=== PATIENT | female | born 1970 | race Asian ===

== ENCOUNTER 2018-12-26 09:08 | Emergency (ER) | payer OTHER ==
--- OUTSIDE RECORDS SUMMARY | 2018-12-26 09:16 | XMS REPORT | Continuity of Care Document ---
:1970 External Reference #:[id number] Author Name CHALINO Jeong Address [address] [place] [address] Care Team Providers Name Role Phone Johann Dumont MD Care Team Information Retail Sales Advisor Unavailable Johann Dumont MD Primary Care Physician Unavailable Payers Date Identification Numbers Payment Provider Subscriber Effective: 2013 Policy Number: [id number] [facility] Group Number: [id number] [address] PayID: [id number] [place] [address] Problems Active Problems Provider Date Other iron deficiency anemias Johann Dumont M.D. Onset: 10/28/2015 Dysmenorrhea Johann Dumont M.D. 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 Onset: 09/23/2015 Resolved: 05/08/2018 Alopecia areata Johann Dumont M.D. Onset: 09/23/2015 Resolved: 05/08/2018 Epidermoid cyst Johann Dumont M.D. Onset: 09/23/2015 Resolved: 05/08/2018 Chest pain Johann Dumont M.D. Onset: 09/23/2015 Resolved: 05/08/2018 Family History Date Family Member(s) Observation Comments Father Arthritis Father Malignant Neoplasm Of Bone Mother Diabetes Mellitus, II Children 1 First Son Peanut allergies Siblings 4 Siblings 2 brothers and 2 sisters are all well Social History Type Date Description Comments Sex Unknown Marital Status Legal Status: Lives With Spouse Lives With Son Diet Healthy, Well Balanced Occupation jail / [place] Abuse No history of abuse Tobacco Use Start: Unknown Nonsmoker ETOH Use Denies alcohol use Tobacco Use Start: Unknown Patient has never smoked Exercise Type/Frequency Exercises regularly dance class, eliane richardsonop, 30 min Seat Belt/Car Seat Always uses seat belt Currently Active Patient is currently sexually active Allergies, Adverse Reactions, Alerts Description No Known Drug Allergies Medications Active Medications SIG Qnty Indications Ordering Date Provider Tizanidine HCL 1-2 by mouth at 30caps M62.830 Hilton 12/23/2018 4mg bedtime prn pain Yolette, CLUBHOUSE ATTENDANT Capsules in shoulder / back Triamcinolone apply sparingly to 15gm Hilton 12/23/2018 Acetonide bilateral Yolette, CLUBHOUSE ATTENDANT 0.025% Cream antecubital space for itching Tylenol as needed Unknown 325mg Capsules History Medications Finger Splint Small r hand use as M79.644 Elli Sofia, 03/01/2018 - directed Camila 05/08/2018 Misc Iron 1 po qd-bid 120tabs Johann FMarguerite 01/26/2016 - 325(65Fe) mg Camila Dumont 05/08/2018 Tablets Fioricet 1 po q 4 hrs prn 30caps R51 Georgette Garcia, 08/19/2015 - 50-300-40mg for headache; Afnp-C 03/09/2017 Capsules may fill w/ generic No Active Unknown 11/17/2014 - Medications 08/19/2015 Penicillin V 1 by mouth twice 20tabs 034.0 Georgette Garcia, 11/07/2014 - Potassium a day x 10 days Afnp-C 11/17/2014 500mg Tablets Azithromycin 2 tabs by mouth 6tabs 466.0 Teddy Brooks M.D. 05/10/2014 - 250mg day #1 then 1 11/07/2014 Tablets tab by mouth day#2-5 No Active Unknown 07/25/2013 - Medications 05/10/2014 Immunizations CPT Code Status Date Vaccine Lot # [id number] Given 05/08/2018 Tdap Tetanus, W Pertussis [id number] Given 03/09/2017 Influenza Vac, Quadrivalent, Slit Virus, Im [id number] Vital Signs Date Vital Result Comment 12/23/2018 10:32am BP Systolic 98 mmHg BP Diastolic 70 mmHg Heart Rate 75 /min Body Temperature 97.8 F Respiratory Rate 16 /min Height 61.5 inches 5'1.50" Weight 114.00 lb BMI (Body Mass Index) 21.2 kg/m2 05/08/2018 10:24am BP Systolic 98 mmHg BP Diastolic 68 mmHg Heart Rate 60 /min Body Temperature 97.6 F Respiratory Rate 16 /min Height 61.5 inches 5'1.50" Weight 110.12 lb BMI (Body Mass Index) 20.5 kg/m2 03/01/2018 8:07am BP Systolic 100 mmHg BP Diastolic 68 mmHg Heart Rate 68 /min Body Temperature 97.3 F Respiratory Rate 18 /min Height 62 inches 5'2" Weight 108.00 lb BMI (Body Mass Index) 19.8 kg/m2 04/06/2017 1:00pm BP Systolic 88 mmHg BP Diastolic 60 mmHg Heart Rate 64 /min Body Temperature 98.1 F Respiratory Rate 16 /min Height 60.75 inches 5'0.75" Weight 114.00 lb BMI (Body Mass Index) 21.7 kg/m2 03/09/2017 1:04pm BP Systolic 80 mmHg BP Diastolic 40 mmHg Heart Rate 78 /min Body Temperature 97.7 F Respiratory Rate 16 /min Height 60.75 inches 5'0.75" Weight 118.00 lb BMI (Body Mass Index) 22.5 kg/m2 10/01/2015 2:35pm BP Systolic 94 mmHg BP Diastolic 58 mmHg Heart Rate 76 /min Body Temperature 98.1 F Respiratory Rate 16 /min Height 60.75 inches 5'0.75" Weight 119.00 lb BMI (Body Mass Index) 22.7 kg/m2 09/23/2015 3:51pm BP Systolic 118 mmHg BP Diastolic 72 mmHg Heart Rate 68 /min Body Temperature 97.7 F Height 60.75 inches 5'0.75" Weight 116.00 lb BMI (Body Mass Index) 22.1 kg/m2 08/19/2015 3:02pm BP Systolic 100 mmHg BP Diastolic 54 mmHg Heart Rate 64 /min Body Temperature 98.4 F Respiratory Rate 12 /min Height 60.75 inches 5'0.75" Weight 120.38 lb BMI (Body Mass Index) 22.9 kg/m2 11/07/2014 3:28pm BP Systolic 100 mmHg BP Diastolic 60 mmHg Heart Rate 68 /min Body Temperature 99.1 F Respiratory Rate 16 /min Height 60.75 inches 5'0.75" Weight 119.50 lb BMI (Body Mass Index) 22.8 kg/m2 05/10/2014 2:36pm BP Systolic 90 mmHg BP Diastolic 62 mmHg Heart Rate 68 /min Body Temperature 97.4 F Respiratory Rate 16 /min O2 % BldC Oximetry 98 % Height 60.75 inches 5'0.75" Weight 121.00 lb BMI (Body Mass Index) 23.0 kg/m2 08/01/2013 2:20pm BP Systolic 90 mmHg BP Diastolic 60 mmHg Heart Rate 68 /min Body Temperature 98.7 F Respiratory Rate 14 /min Height 60.75 inches 5'0.75" Weight 114.00 lb BMI (Body Mass Index) 21.7 kg/m2 07/25/2013 3:50pm BP Systolic 107 mmHg BP Diastolic 70 mmHg Heart Rate 62 /min Body Temperature 99.0 F Respiratory Rate 16 /min Height 60.75 inches 5'0.75" Weight 114.00 lb BMI (Body Mass Index) 21.7 kg/m2 Results Test Date Facility Test Result H/L Range Note Iron And Tibc 11/06/2018 [facility] Iron 409 g/dL 250-450 1 [address] [facility] [place] [address] ) (607)- - Uibc 180 g/dL 131-425 Iron 229 g/dL High 27-159 Iron Saturation 56 % High 15-55 Hemoglobinopathy Fraction 11/06/2018 [facility] Hgb F 0.0 % 0.0-2.0 Prof W/O Solu [address] [place] [address] (607)- - Hgb A 79.9 % Low 96.4-98.8 Hgb S 0.0 % 0.0 Hgb C 0.0 % 0.0 Hgb A2 See Comment: % 1.8-3.2 2 Hgb Variant 20.1 % High 0.0 Interpretation See Comment: 3 CBC Electronic Fma 11/06/2018 [facility](fma) WBC 5.2 x10^3/UL 4.0- 10.0 RBC 4.06 x10^6/UL 3.93-6.00 HGB 11.4 g/dL Low 12.0-17.0 HCT 34 % Low 35-50 MCV 84.5 fL 80.0-95.0 MCH 28.1 pg 25.6-32.2 MCHC 33.2 g/dL 32.2-36.0 RDW-CV 13.0 % 11.6-14.4 PLT 220 x10^3/UL 163-400 MPV 10.7 fL 9.4-12.4 Elena# 3.26 x10^3/UL 1.56-6.13 Lymph# 1.09 x10^3/UL Low 1.18-3.74 Roosevelt# 0.37 x10^3/UL 0.24-0.82 Eos # 0.4 x10^3/UL 0.0-0.5 Baso # 0.07 x10^3/UL 0.01-0.08 Elena% 63.1 % 34.0-70.0 Lymph % 21.1 % 20.0-52.0 Roosevelt% 7.2 % 5.0-12.0 Eos% 7.0 % 0.7-7.0 Baso% 1.4 % High 0.1-1.2 Laboratory test 11/06/2018 [facility] Sima(a) Ferritin 11 ng/mL Low 15- 200 4 finding Laboratory test 05/08/2018 [facility] Cytology SEE RESULT 5 finding Thinprep BELOW w/rfx([facility]) Comprehensive 04/25/2018 [facility] Sima(fma) Sodium 140 mEq/L 134-149 Metabolic Prof Potassium 4.6 mEq/L 3.6-5.5 Chloride 108 mEq/L 94-112 Carbon Dioxide 24 mEq/L 21-32 Glucose 101 mg/dL 70-105 BUN 10 mg/dL 6-26 Creatinine 0.5 mg/dL Low 0.6-1.4 6 BUN/Creat Ratio 20.0 CALC 8.0-36.0 Calcium 8.2 mg/dL Low 8.6-10.2 7 Total Protein 7.2 g/dL 6.4-8.3 Albumin 4.4 g/dL 3.8-5.5 Globulin 2.8 g/dL 2.0-4.8 A/G Ratio 1.6 CALC 0.6-2.3 Alk. Phosphatase 43 U/L 30-110 Alt (SGPT) 11 U/L 7-35 Ast (Sgot) 11 U/L 5-34 Total Bilirubin 0.4 mg/dL 0.2-1.3 GFR Non- >60 ml/min/1.73m^ >=60 GFR >60 ml/min/1.73m^ >=60 Lipid Profile 04/25/2018 [facility](fma) Cholesterol 214 mg/dL High 120-200 Triglycerides 40 mg/dL 30-200 HDL Cholesterol 86 mg/dL High 30-85 LDL (Calculated) 120 CALC 0-129 VLDL Cholesterol 8 mg/dL 0-50 HDL Risk Factor 2.5 CALC 0.0-4.4 CBC Electronic Fma 04/25/2018 [facility] Flora(fma) WBC 7.0 x10^3/UL 4.0- 10.0 RBC 3.85 x10^6/UL Low 3.93-6.00 HGB 10.7 g/dL Low 12.0-17.0 HCT 33 % Low 35-50 MCV 85.2 fL 80.0-95.0 MCH 27.8 pg 25.6-32.2 MCHC 32.6 g/dL 32.2-36.0 RDW-CV 13.9 % 11.6-14.4 PLT 248 x10^3/UL 163-400 MPV 10.6 fL 9.4-12.4 Elena# 4.84 x10^3/UL 1.56-6.13 Lymph# 1.10 x10^3/UL Low 1.18-3.74 Roosevelt# 0.39 x10^3/UL 0.24-0.82 Eos # 0.6 x10^3/UL High 0.0-0.5 Baso # 0.07 x10^3/UL 0.01-0.08 Elena% 69.6 % 34.0-70.0 Lymph % 15.8 % Low 20.0-52.0 Roosevelt% 5.6 % 5.0-12.0 Eos% 8.0 % High 0.7-7.0 Baso% 1.0 % 0.1-1.2 Age 1104/06/2017 [facility] Age 30-65 [facility] [place] [address] (809)- - Diagn See Comment: Abnormal 8 Recomm See Comment: Abnormal 9 Adeq See Comment: 10 [email or web address] See Comment: 11 Perfor See Comment: 12 Signed See Comment: 13 Comm . [email or web address] See Comment: 14 Note See Comment: 15 Iglbp See Comment: 16 HPV Aptima Negative Negative 17 Laboratory test 04/06/2017 [facility] PDF [id number] SEE IMAGE finding [address] [place] [address] (607)- - Ict Hemoccult 03/28/2017 [facility] Ict Hemoccult (1) 03/10/17 neg (Fma) (607)- - Ict Hemoccult-(2) 03/11/17 neg Ict-Hemoccult (3) 03/12/17 neg Iron & Iron Binding Capacity 03/09/2017 [facility] Iron 95 g/dL N 50-212 Unsaturated Iron Binding 363 g/dL N Total Iron Binding Capacity 458 g/dL High 250-450 % Iron Saturation 21 % N 15-55 Complete Blood Count 03/09/2017 [facility] Sima(a) WBC 7.5 x10^3/UL 3.6 -9.6 RBC 4.21 x10^6/UL 3.90-5.70 HGB 11.7 g/dL Low 12.1-17.2 HCT 36 % 36-50 MCV 85.0 fL 82.2-97.4 MCH 27.7 pg 27.6-33.3 MCHC 33.0 g/dL 33.0-35.5 RDW 13.0 % 11.6-13.7 PLT 262 x10^3/UL 150-400 MPV 8.0 fL 7.4-10.4 Gran # 5.4 x10^3/UL 1.5-7.2 Lymph# 1.7 x10^3/UL 0.7-4.9 Roosevelt# 0.4 x10^3/UL 0.1-0.9 Gran % 71.0 % 42.2-75.2 Lymph % 23.4 % 20.5-51.1 Roosevelt% 5.6 % 1.7-9.3 CBC Electronic (Fma) 12/26/2015 [facility] WBC 6.1 3.6-9.6 (607)- - RBC 3.69 Low 3.90-5.70 18 Hemoglobin (Fma/CMC/CTX) 10.4 g/dL Low 12.1 - 17.2 Hematocrit (Fma/CMC/CTX) 31.9 % Low 36.1 - 50.3 Platelets 253 10^3/ul 150-400 Lymph% 35.7 % 17.0-48.0 Mixed% 6.7 Neutrophils % 57.6 Mean Corpuscular Vol 86 82.2-97.4 Mean Corpuscular Hemoglobin 28.1 27.6-33.3 Mean Corpuscular Hemo Concen 32.5 32.0-36.0 RDW 13.0 11.6-13.7 Mean Platelet Volume 6.9 5.5-11.0 Laboratory test 12/26/2015 [facility] Sima(fma) Serum Iron 47 g/dL Low 60-150 finding Ict Hemoccult 11/18/2015 [facility] Ict Hemoccult 11/03/15 NEG (Fma) (607)- - (1) Ict Hemoccult-(2) 11/04/15 NEG Ict-Hemoccult (3) 11/06/15 NEG Pap HPV High Risk 10/01/2015 [facility] Diagn See Comment: 19 [address] [place] [address] (366)- - Recomm See Comment: 20 Adeq See Comment: 21 [email or web address] See Comment: 22 Perfor See Comment: 23 Signed See Comment: 24 Comm . Note See Comment: 25 Iglbp See Comment: 26 HPV, high-risk Negative Negative 27 Laboratory test 10/01/2015 [facility] PDF [id number] SEE IMAGE finding [address] [place] [address] (072)- - CBC Electronic 09/23/2015 [facility] WBC 6.1 3.6-9. (Fma) (607)- - 6 RBC 3.89 Low 3.90-5.70 Hemoglobin (Fma/CMC/CTX) 10.3 g/dL Low 12.1 - 17.2 28 Hematocrit (Fma/CMC/CTX) 32.0 % Low 36.1 - 50.3 Platelets 253 10^3/ul 150-400 Lymph% 28.1 % 17.0-48.0 Mixed% 5.0 Neutrophils % 66.9 Mean Corpuscular Vol 82 Low 82.2-97.4 Mean Corpuscular Hemoglobin 26.5 Low 27.6-33.3 Mean Corpuscular Hemo Concen 32.3 32.0-36.0 RDW 13.6 11.6-13.7 Mean Platelet Volume 7.7 5.5-11.0 Comprehensive Metabolic 09/23/2015 [facility](fma) Sodium 138 mEq/L 134-149 Prof Potassium 4.0 mEq/L 3.6-5.5 Chloride 100 mEq/L 94-112 Carbon Dioxide 28 mEq/L 21-32 Glucose 89 mg/dL 70-105 BUN 9 mg/dL 6-26 Creatinine 0.6 mg/dL 0.6-1.4 BUN/Creat Ratio 15.0 CALC 8.0-36.0 Calcium 9.4 mg/dL 8.6-10.2 Total Protein 8.1 g/dL 6.4-8.3 Albumin 4.4 g/dL 3.8-5.5 Globulin 3.7 g/dL 2.0-4.8 A/G Ratio 1.2 CALC 0.6-2.3 Alk. Phosphatase 45 U/L 30-110 Alt (SGPT) 10 U/L 7-35 Ast (Sgot) 15 U/L 5-34 Total Bilirubin 0.4 mg/dL 0.2-1.3 GFR Non- >60 ml/min/1.73m^ >=60 GFR >60 ml/min/1.73m^ >=60 Lipid Profile 09/23/2015 [facility] Goa(fma) Cholesterol 242 mg/dL High 120-200 Triglycerides 64 mg/dL 30-200 HDL Cholesterol 67 mg/dL 30-85 LDL (Calculated) 162 CALC High 0-129 VLDL Cholesterol 13 mg/dL 0-50 HDL Risk Factor 3.6 CALC 0.0-4.4 Laboratory test 09/23/2015 [facility] Gao(fma) TSH 2.03 mIU/L 0.50-6.00 finding Laboratory test 11/07/2014 [facility] Medicine Quickstrep POSITIVE # Negative finding (607)- - Laboratory test 07/25/2013 [facility] Surgical RUN DATE: finding Pathology 07/27/ <SEE NOTE> 1 2 lav edta tubes whole blo od 2 We are unable to report a value for Hgb A2 due to its co-elution with another reported hemoglobin. 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 4 RESULTS VERIFIED BY REPEAT ANALYSIS 5 SEE RESULT BELOW Name: JAYCEE MERAZ : [address]: Elli Sofia MD Acct: [id number] Unit: [id number] AGE: 47 Location: [facility] Re05/08/18 SEX: F Status: REG REF SPEC: [id number] SHARON: 05/08/18-[address] [facility] [address]: Elli Sofia MD REQ: [id number] RECD: 05/08/18 STATUS: SOUT _ ORDERED: TP IMAGE ANALYS COMMENTS: [id number] Negative for Intraepithelial lesion or Malignancy A. Ectocervical/Endocervical Specimen Adequacy: Satisfactory of evaluation Transformation zone component identified Patient Information: HPV: Thin Layer Pap Test w/reflex to high risk HPV RNA testing when ASCUS Actual Specimen Date: 05/08/18 Last Menstrual Date: 05/01/18 Date of Last Specimen: 04/06/17 ?: Y Post Menopausal?: N Hysterectomy?: N Previous Abnormal Pap Smears?:Y If Yes, enter Diagnosis: Epithelial cell abnormality. Signed by and Reported on: ROLAND Martinez(ASCP) [id number] This Pap test was evaluated with the assistance of the jaeyosPrep Test Imaging System. Due to cytologic findings at the senior data mining analyst microscope, comprehensive manual rescreening by a Cartridge Belt Puncher may be required. The Pap Smear is a screening test designed to aid in the detection of premalignant and malignant conditions of the uterine cervix. It is not a diagnostic procedure and should not be used as the sole means of detecting cervical cancer. Both false- positive and false- negative reports do occur. Depending on your risk status, a Pap smear should be obtained and evaluated every 1-3 years. END OF REPORT DEPARTMENT OF PATHOLOGY, [address] [place] [address] Carlos Burks M.D. Director [facility] # [id number] 6 RESULTS VERIFIED BY REPEAT ANALYSIS 7 RESULTS VERIFIED BY REPEAT ANALYSIS 8 EPITHELIAL CELL ABNORMALITY. ATYPICAL SQUAMOUS CELLS OF UNDETERMINED SIGNIFICANCE. 9 Suggest follow up as clinically appropriate. 10 Satisfactory for evaluation. Endocervical and/or squamous metaplastic cells (endocervical component) are present. 11 Z12.4 12 Karlene Pillai, Cartridge Belt Puncher ([facility]) 13 Kip Valle MD, Pathologist 14 R87.610 15 The Pap smear is a screening test designed to aid in the detection of premalignant and malignant conditions of the uterine cervix. It is not a diagnostic procedure and should not be used as the sole means of detecting cervical cancer. Both false-positive and false-negative reports do occur. 16 This liquid based ThinPrep(R) pap test was screened with the use of an image guided system. 17 This test detects fourteen high-risk HPV types (16/18/31/33/35/39/45/ 51/52/56/58/59/66/68) without differentiation. 18 consistent 19 NEGATIVE FOR INTRAEPITHELIAL LESION AND MALIGNANCY. REACTIVE CELLULAR CHANGES AND/OR REPAIR ARE PRESENT. 20 Suggest follow up as clinically appropriate. 21 Satisfactory for evaluation. Endocervical and/or squamous metaplastic cells (endocervical component) are present. 22 Z12.4 23 Loreto Kirkland, Cartridge Belt Puncher (ASCP) 24 Arline Nix MD, Pathologist 25 The Pap smear is a screening test designed to aid in the detection of premalignant and malignant conditions of the uterine cervix. It is not a diagnostic procedure and should not be used as the sole means of detecting cervical cancer. Both false-positive and false-negative reports do occur. 26 This liquid based ThinPrep(R) pap test was screened with the use of an image guided system. 27 This high-risk HPV test detects thirteen high-risk types (16/18/31/33/35/39/45/51/52/56/58/59/68) without differentiation. 28 RESULTS RECHECKED 29 RUN DATE: 07/27/13 [facility] LAB LIVE PAGE 1 RUN TIME: [address] [place] [address] Specimen Inquiry Name: ANUP GARRETT : [address]: Teddy Brooks MD Acct: [id number] Unit: [id number] AGE: 42 Location: [facility] Re07/25/13 SEX: F Status: REG REF SPEC: [id number] SHARON: 07/25/13-[address]: Teddy Brooks MD REQ: [id number] RECD: 07/25/13 STATUS: SOUT _ ORDERED: LEVEL IV FINAL DIAGNOSIS Skin, left face, biopsy: Verrucous seborrheic keratosis, inflamed. PRE-OPERATIVE DIAGNOSIS Skin lesion GROSS DESCRIPTION The specimen is received in formalin labeled [facility], No Source. There is an accompanying requisition labeled Skin Lesion Left Face and consists of a 0.5 x 0.5 x 0.2 cm. pineda-sosa, circular, verrucoid, portion of skin which is inked, bisected, and submitted entirely in one cassette. Signed (signature on file) Rosalina Pierre MD 12/03 1819 END OF REPORT * ML=Testing performed at Main Lab DEPARTMENT OF PATHOLOGY, [address] [place] [address] Carlos Burks M.D. Director [facility] Permit #[id number] Procedures Date Code Description Status 06/07/2018 38233087 Mammogram Completed 11/04/2015 [id number] Mammogram Completed 09/23/2015 73258 Electrocardiogram Complete Completed 05/10/2014 11487 Pulse Oximetry Completed 07/25/2013 19369 Excise Benign Lesion .6-1CM Completed Face/Ear/Eyelid/Nose/Lip/Mucous Memb Encounters Type Date Location Provider Dx Diagnosis Office Visit 03/01/2018 [facility] Office Elli Sofia M79.644 Pain in right 8:00a M.D. finger(s) Office Visit 04/06/2017 Main Office Anusha Hazel, Z01.419 Encntr for psychiatric aides teacher exam 1:00p CLUBHOUSE ATTENDANT (general) (routine) w/o abn findings Office Visit 03/09/2017 Main Office Johann Pugh Encounter for 1:00p Camila Dumont immunization D50.8 Other iron deficiency anemias N94.6 Dysmenorrhea, unspecified Office Visit 10/01/2015 3:00p Main Office Kadie Sims, DIMENSIONAL INTEGRATION ENGINEER Z01.419 Encntr for psychiatric aides teacher exam (general) (routine) w/o abn findings Z30.8 Encounter for other contraceptive management D64.9 Anemia, unspecified Z12.31 Encntr screen mammogram for malignant neoplasm of breast Z12.11 Encounter for screening for malignant neoplasm of colon Office Visit 09/23/2015 2:30p Main Office Johann Dumont, Z00.00 Encntr for M.D. general adult medical exam w/o abnormal findings L63.8 Other alopecia areata L72.0 Epidermal cyst R07.89 Other chest pain Office Visit 08/19/2015 2:30p Main Office Georgette Garcia R51 Headache Afnp-C Office Visit 11/07/2014 3:30p Main Office Georgette Garcia, 034.0 Streptococcal Sore Afnp-C Throat Office Visit 05/10/2014 2:30p [place] Teddy Brooks, 466.0 Bronchitis Acute Office M.D. Office Visit 08/01/2013 2:30p Main Office Teddy Brooks, V58.32 Encounter For M.D. Removal Of Sutures 702.11 Seborrheic Keratosis Inflamed Plan of Treatment 12/23/2018 - Rosalina De La Vega, FNPM62.830 Muscle spasm of backNew Medication: Tizanidine HCL 4 mg - 1-2 by mouth at bedtime prn pain in shoulder / backComments:Apply heat routinely-- at least 3 times per day, gentle range of motion and MASSAGEIf you aren't seeing significant improvement within 5-7 days, come backM25.512 Pain in left shoulderAllComments:Medication Management Patient Understands medications he 's taking? Yes No Are there Barriers to Adherence? Yes No Has the patient been asked about herbal supplements and therapies, andOTC meds? Yes No As always, we strongly encourage a healthy diet and making physical activity a part of your every day life. If you have questions about how or where to start, please contact the office.
[2018-12-26] MEDS ORDERED: Ibuprofen TAB* 600 MG PO ONE (09:53)
[2018-12-26] MEDS ORDERED: Acetaminophen TAB* 325 MG PO ONE (09:53)
[2018-12-26] MEDS ORDERED: Cyclobenzaprine TAB* 10 MG PO ONE (09:54)
[2018-12-26] MEDS ORDERED: Lidocaine PATCH 5%* 1 PATCH ONE (10:08)
--- NOTE | 2018-12-26 10:21 | ED ---
Back Pain - HPI Summary HPI Summary: This pt is a 48 Y/O F presenting to [facility] accompanied by her with a CC of L upper back pain/shoulder pain. Pain began 3 weeks ago and has been worsening since 12/21/18 when she lifted a heavy pot at work. She states that the pain is a 9/10 in severity. She states that she has tingling going down into her L arm when she slept 2/2 sleeping angel weird position but this has resolved. She reports she has pain with ROM. The pt states that the pain is described as a tightness in her shoulder that causes pain in her arm with movement. She states that the medications she has been taking has been unhelpful from her PCP. She stated that movement and lifting aggravates the symptoms and she stated no alleviating factors. She has a FHx of diabetes. - History of Current Complaint Chief Complaint: EDBackInjuryPain Stated Complaint: BACK PAIN Time Seen by Provider: 12/26/18 09:33 Hx Obtained From: Patient Onset/Duration: Gradual Onset, Lasting Weeks - 3, Still Present, Worse Since - Onset/Duration: Started Weeks Ago - 3, Still Present, Worse Since - 12/21/18 Timing: Constant Back Pain Location: Is Discrete @ - L shoulder blade Severity Initially: Moderate Severity Currently: Severe Pain Intensity: 10 Pain Scale Used: 0-10 Numeric Character: Stiffness Aggravating Symptom(s): Movement, Lifting Alleviating Symptom(s): Nothing Associated Signs And Symptoms: Positive: Negative, Numbness - L arm - Allergies/Home Medications Allergies/Adverse Reactions: Allergies Allergy/AdvReac Type Severity Reaction Status Date / Time No Known Allergies Allergy Verified 12/26/18 09:12 Home Medications: Home Medications Tizanidine HCl 1 - 2 tab PO BEDTIME 12/26/18 [History Confirmed 12/26/18] Triamcinolone 0.025% CM(NF) [Kenalog Cream 0.025%*] 1 applic TOPICAL DAILY 12/26 [History Confirmed 12/26/18] PMH/Surg Hx/FS Hx/Imm Hx - Cancer History Hx Chemotherapy: No Hx Radiation Therapy: No Infectious Disease History: No Infectious Disease History: Denies: Traveled Outside the [place] in Last 30 Days - Social History Alcohol Use: None Substance Use Type: Reports: None Smoking Status (MU): Never Smoked Tobacco Review of Systems All Other Systems Reviewed And Are Negative: Yes Physical Exam - Summary Physical Exam Summary: Constitutional: Well-developed, Well-nourished, Alert. (-) Distressed Skin: Warm, Dry HENT: Normocephalic; Atraumatic Eyes: Conjunctiva normal Neck: Musculoskeletal ROM normal neck. (-) JVD, (-) Stridor, (-) Nuchal rigidity Cardio: Rhythm regular, rate normal, Heart sounds normal; Intact distal pulses; Radial pulses are 2+ and symmetric. (-) Murmur Pulmonary/Chest wall: Effort normal. (-) Respiratory distress, (-) Wheezes, (-) Rales Abd: Soft, (-) tenderness, (-) Distension, (-) Guarding, (-) Rebound Musculoskeletal: Paraspinal thoracic ttp and scapular tenderness on the left. No midline CTL tenderness. Full range of motion of left shoulder, pain with shoulder Ab/Adduction. Strength 5 out of 5 in hand, elbow and shoulder. Lymph: (-) Cervical adenopathy Neuro: Alert, Oriented x3. SILT left upper extremity Psych: Mood and affect Normal Triage Information Reviewed: Yes Vital Signs On Initial Exam: Initial Vitals Temp Pulse Resp BP Pulse Ox 98.0 F 58 18 98/56 100 12/26/18 09:09 12/26/18 09:09 12/26/18 09:09 12/26/18 09:09 12/26/18 09:09 Vital Signs Reviewed: Yes Diagnostics - Vital Signs Vital Signs Temp Pulse Resp BP Pulse Ox 12/26/18 09:09 98.0 F 58 18 98/56 100 - Laboratory Lab Statement: Any lab studies that have been ordered have been reviewed, and results considered in the medical decision making process. - Radiology L shoulder X-Ray Radiology Interpretation Completed By: Radiologist Summary of Radiographic Findings: No evidence for fracture. ED physician has reviewed this report. - EKG 1038 Cardiac Rate: NL - 64 BPM EKG Rhythm: Sinus Rhythm ST Segment: Normal Ectopy: None Summary of EKG Findings: EKG at 1038 reveals normal sinus rhythm 64 BPM, nml axis, nml intervals. No STEMI. No acute changes. Interpreted by Dr. Michelle at 1048 12/26/18. Re-Evaluation - Re-Evaluation First Eval Re-Evaluation Time: 11:13 Change: Improved Comment: Pt stated that she was feeling better after the medications. Patient states that she will take Motrin and Flexeril home, apply cold packs, and will take off a few days of work. Patient instructed to return for worsening symptoms and agreeable Back Pain Course/Dx - Course Course Of Treatment: 48-year-old female who presents with left upper paraspinal thoracic and shoulder pain after lifting a heavy object. Pulse motor sensory intact, range of motion of shoulder with pain. No midline spinal tenderness. Check of x-ray of the shoulder however suspect MSK strain. Will try Flexeril and Motrin as well as lidocaine patch. - Diagnoses Differential Diagnosis/HQI/PQRI: Positive: Strain - shoudler, Sprain - shoulder Provider Diagnoses: Shoulder pain, Shoulder strain Discharge - Sign-Out/Discharge Documenting (check all that apply): Patient Departure - discharge Patient Received Moderate/Deep Sedation with Procedure: No - Discharge Plan Condition: Stable Disposition: HOME Prescriptions: Cyclobenzaprine TAB* [Flexeril 10 MG TAB*] 10 mg PO TID PRN 4 Days #12 tab PRN Reason: Pain - Moderate Ibuprofen TAB* [Motrin TAB* 800 MG] 600 mg PO Q6H 10 Days #30 tab Patient Education Materials: Rotator Cuff Injury (ED), Shoulder Pain (ED) Forms: *Work Release Referrals: Johann Dumont MD [Primary Care Provider] - 3 Days Additional Instructions: You were seen in the emergency department for shoulder and upper back pain Please take Motrin 600 mg every 6-8 hours as needed for pain. You can also take Flexeril as needed. If any studies were not completed at the time of discharge you will be called with the relevant results. Please follow up with your primary care doctor in next 2-3 days and return to emergency department for worsening or concerning symptoms. - Billing Disposition and Condition Condition: STABLE Disposition: Home - Attestation Statements Document Initiated by Scribe: Yes Documenting Scribe: Rudolph Cain Provider For Whom Meñoibe is Documenting (Include Credential): Angel Michelle MD Scribe Attestation: Rudolph Dukes, scribed for Angel Michelle MD on 12/26/18 at 1243. Scribe Documentation Reviewed: Yes Provider Attestation: The documentation as recorded by the scribe, Rudolph Cain accurately reflects the service I personally performed and the decisions made by me, Angel Michelle MD Status of Scribheriberto Document: Viewed
[2018-12-26 12:58] VITALS: BP 123/70
[2018-12-26] MEDS ORDERED: Lidocaine Patch REMOVE* 1 NOTE MISC SCH (21:00)
[2018-12-27] MEDS ORDERED: Lidocaine PATCH 5%* 1 PATCH TRANSDERM SCH (09:00)
== END 2018-12-26 12:58 | disposition home or self-care (01) ==
LOC: ED 09:08
DX: S46.912A Strain of unspecified muscle, fascia and tendon at shoulder and upper arm level, left arm, initial encounter (principal); X50.0XXA Overexertion from strenuous movement or load, initial encounter; Y92.89 Other specified places as the place of occurrence of the external cause; Y99.0 Civilian activity done for income or pay; Z79.899 Other long term (current) drug therapy
CPT/HCPCS: 99283; A9270-GY